=== PATIENT | female | born 1985 | race Caucasian/White ===

== ENCOUNTER 2021-07-05 15:17 | Emergency (ER) | payer BC, SELFPAY ==
[2021-07-05 16:19] VITALS: BP 124/62; PULSE 80; RESP 16; TEMP 36.8; O2SAT 100
--- NOTE | 2021-07-05 17:33 | ED.URI ---
HPI - URI/Sore Throat General Chief Complaint: Upper Respiratory Infection Stated Complaint: Congestion, cough, sore throat Time Seen by Provider: 07/05/21 17:25 Source: patient Mode of arrival: ambulatory Limitations: no limitations History of Present Illness HPI Narrative: jaguar Florez is a 36 yo female no PMH who comes with complaints of sore throat cough and general sinus congestion that started suddenly about 2 days ago Related Data Home Medications Medication Instructions Recorded Confirmed Humira 07/05/21 Zyrtec 07/05/21 sertraline 07/05/21 Allergies Allergy/AdvReac Type Severity Reaction Status Date / Time Sulfa (Sulfonamide Allergy Rash Verified 07/05/21 16:54 Antibiotics) Review of Systems Review of Systems: CONSTITUTIONAL: Denies fever, chills, sweats. EYES: Denies visual changes, redness, discharge. ENT: Has rhinorrhea, has congestion, has sore throat, otalgia. CARDIOVASCULAR chest pain, palpitations, edema. RESPIRATORY: Denies dyspnea, wheezing, has cough GASTROINTESTINAL: Denies abdominal pain, nausea, vomiting, diarrhea. GENITOURINARY: Denies dysuria, hematuria, abnormal discharge SKIN: Denies rash or itching. NEUROLOGIC: Denies numbness, or focal weakness. PSYCHIATRIC: Denies anxiety or depression. [facility] Past Medical History Medical History No acute medical problems Social History Social History (Updated 07/05/21 @ 17:36 by Mala Booth CNP) Smoking status: Never smoker Alcohol intake: current Comments At time of signature, I agree with nursing past medical, surgical, social and family history. There is no relevant family history pertinent to the presenting complaint. Exam Narrative: GENERAL: This is a well-nourished, well-developed patient, in mild distress. HEAD: normocephalic, atraumatic. EYES: Sclera clear/white. Vision is grossly intact. EARS: External ears normal, auditory canals clear and without drainage, TMs normal without perforation. Hearing grossly intact. NOSE: External nose normal with nasal discharge, nares with redness,has rhinorrhea. THROAT: Mucous membranes moist, posterior pharynx erythema NECK: Neck supple, non-tender CARDIOVASCULAR: Regular rate and rhythm without murmurs, gallops, or rubs. RESPIRATORY: Clear to auscultation. Breath sounds equal bilaterally. No wheezes, rales, or rhonchi. Dry cough GASTROINTESTINAL: Abdomen soft, SKIN: warm, intact with no suspicious lesions or rash, good texture and turgor. NEURO: awake, alert, and oriented to person, place and time. There were no obvious focal neurologic abnormalities. Steady gait EXTREMITIES: Normal range of motion. BACK: Nontender without deformity Course Course Emergency Course: Patient has cough runny nose and sore throat Patient has been vaccinated had booster Strep is negative Flu a and B is negative Started on prednisone, Tessalon, codeine cough syrup Vital Signs Vital signs: Vital Signs Temperature 98.2 F 07/05/21 16:19 Pulse Rate 80 07/05/21 16:19 Respiratory Rate 16 07/05/21 16:19 Blood Pressure 124/62 07/05/21 16:19 Pulse Oximetry 100 07/05/21 16:19 Temperature 98.2 F 07/05/21 16:19 Pulse Rate 80 07/05/21 16:19 Respiratory Rate 16 07/05/21 16:19 Blood Pressure 124/62 07/05/21 16:19 Pulse Oximetry 100 07/05/21 16:19 MDM - URI/Sore Throat Differential Diagnosis Differential diagnosis: Likely upper respiratory infection, viral infection, bronchitis, influenza, pharyngitis and other Lab Data Labs: Influenza A Screen Negative Reference Range: Negative Influenza B Screen Negative Reference Range: Negative Strep Screen Presumptive Negative *(Reference Range: Negative)* Critical Care Ti
== END 2021-07-05 17:51 | disposition home or self-care (01) ==
PROVIDERS: Emergency Provider Nurse Practitioner
DX: J06.9 Acute upper respiratory infection, unspecified (principal)
CPT/HCPCS: 87081; 87804; 87880; 99203; G0463